=== PATIENT | female | born 2005 | race Caucasian/White ===

== ENCOUNTER 2024-12-02 00:24 | Emergency (ER) | payer OTHER, SELFPAY ==
[2024-12-02 00:34] VITALS: BP 148/83; PULSE 86; RESP 18; TEMP 37.2; O2SAT 99; BMI 39.0
[2024-12-02 00:39] VITALS: BP 148/83; PULSE 86; RESP 18; TEMP 37.2; O2SAT 99
--- NOTE | 2024-12-02 00:56 | W.ED.URI ---
HPI - URI/Sore Throat General: Chief Complaint: Upper Respiratory Infection Stated Complaint: fever, cough Time Seen by Provider: 12/02/24 00:36 History of Present Illness: Patient presents to the ER with sore throat fever cough congestion. Patient's mom had been diagnosed with the flu last night and prescribed Tamiflu. Patient states she is get the flu from her. Related Data Previous Rx's Medication Instructions Recorded albuterol sulfate 90 mcg/actuation 2 puff inhalation Q6H PRN 06/25/22 aerosol inhaler (Ventolin HFA) shortness of breath or wheezing #8.5 grams albuterol sulfate 90 mcg/actuation 2 inh inhalation Q4H PRN shortness 06/04/23 aerosol inhaler of breath or wheezing #6.7 grams oseltamivir 75 mg capsule (Tamiflu) 75 mg PO BID 5 days #10 caps 12/02/24 Allergies Allergy/AdvReac Type Severity Reaction Status Date / Time menthol Allergy ALGY-Rash Verified 12/02/24 00:40 Review of Systems General: Reports: 10 or more systems reviewed and unremarkable except in HPI and below PFSH ED PFSH: Social History Smoking and tobacco/nicotine status: never used tobacco/nicotine Physical Exam Const: COMMON NORMALS: no acute distress, average body habitus, patient oriented x3, no limitations, healthy appearing, alert and well nourished HENMT: COMMON NORMALS: normocephalic, atraumatic, hearing grossly normal bilaterally, external ears normal, Normal external nose present and moist oral mucous membranes HEAD & SCALP: normocephalic and atraumatic NOSE: Normal external nose present EXTERNAL EAR: Yes external ears normal Neck/C-Spine: COMMON NORMALS: no JVD Chest: COMMONS NORMALS: normal inspection of the chest and normal palpation of entire chest wall Resp: COMMON NORMALS: normal respiratory effort, No retractions, No use of accessory muscles and clear to auscultation bilaterally AUSCULTATION: clear to auscultation bilaterally Cardio: COMMON NORMALS: no JVD, regular rate, regular rhythm, S1 normal heart sound present, S2 normal heart sound present, No gallops present (Cardio), No clicks present (Cardio), No murmurs present (Cardio) and No rub (Cardio) RATE: regular rate RHYTHM: regular rhythm HEART SOUNDS: S1 normal heart sound present and S2 normal heart sound present GI: COMMON NORMALS: Normal to inspection, nondistended, normoactive bowel sounds present, Soft to palpation, non-tender, No hepatosplenomegaly present and no masses PALPATION: Yes Soft to palpation and Yes No hepatosplenomegaly present Neuro: COMMON NORMALS: patient oriented x3 SENSORIUM/ORIENTATION: Yes alert Course Vital Signs: Vital signs: Vital Signs Temperature 98.9 F 12/02/24 00:39 Pulse Rate 86 12/02/24 00:39 Respiratory Rate 18 12/02/24 00:39 Blood Pressure 148/83 12/02/24 00:39 Pulse Oximetry 99 12/02/24 00:39 Oxygen Delivery Me thod Room Air 12/02/24 00:34 MDM - URI/Sore Throat Medical Decision Making Coronavirus negative, influenza B negative, RSV negative, influenza A positive, patient be discharged on Tamiflu. Medical Records I reviewed the patient's medical records. Lab Data I reviewed the patient's lab results. Laboratory Results Coronavirus (PCR) Negative (Negative) 12/02/24 00:45 Influenza A (PCR) Positive (Negative) 12/02/24 00:45 Influenza Type B (PCR) Negative (Negative) 12/02/24 00:45 RSV (PCR) Negative (Negative) 12/02/24 00:45 No radiology studies performed this visit Discharge Plan Discharge Patient Disposition: Home Clinical Impression: Influenza A Condition: Stable Prescriptions: New oseltamivir [Tamiflu] 75 mg capsule 75 mg PO BID 5 Days Qty: 10 0RF No Action albuterol sulfate [Ventolin HFA] 90 mcg/actuation HFA aerosol inhaler 2 puff inhalation Q6H PRN (Reason: shortness of breath or wheezing) Qty: 8.5 1RF albuterol sulfate 90 mcg/actuation HFA aerosol inhaler 2 inh inhalation Q4H PRN (Reason: shortness of breath or wheezing) Qty: 6.7 0RF Discharge Orders: Discharge ED (Routine); Ordered 12/02/24 Ordered By: Antonio Odom Referrals: Samuel Donovan Jr, MD [Family Provider] - 1 week Patient Instructions: Influenza (DC) Activity Restrictions/Additional Instructions: [facility]. Please realize that you were seen in the emergency department and that we are providing you with an emergency medical screening exam and this may not be a complete and all exclusive of all testing and/or medical workup we may need to determine your element or severity of your illness. It is very important that you follow-up as instructed with your primary care provider or specialist for the additional evaluation and to discuss your medical treatment plan. You may return to the emergency department should you have concerns or if your condition changes or worsens in any way. Coding Level of Care Code ED Dedicated Local Truck Driver for Leslie Rivsa
[2024-12-02] MEDS: oseltamivir phosphate 75 mg Capsule PO (01:06)
[2024-12-02 01:30] LABS: Covid PCR NEGATIVE (Negative); Influenza A POSITIVE (Negative); Influenza B NEGATIVE (Negative); Respiratory Syncytial Virus Ce NEGATIVE (Negative)
[2024-12-02 02:00] VITALS: BP 111/94; PULSE 84; O2SAT 98
== END 2024-12-02 01:45 | disposition home or self-care (01) ==
PROVIDERS: Emergency Provider Emergency Medicine
DX: J10.1 Influenza due to other identified influenza virus with other respiratory manifestations (principal); Z11.52 Encounter for screening for COVID-19
CPT/HCPCS: 87637; 99283

== ENCOUNTER 2024-12-02 18:04 | Emergency (ER) | payer OTHER, SELFPAY ==
[2024-12-02 18:11] VITALS: BP 123/86; PULSE 104; RESP 16; TEMP 38.6; O2SAT 98; BMI 39.0
--- NOTE | 2024-12-02 19:50 | XRR_ITS ---
PROCEDURE INFORMATION: Exam: XR Chest Exam date and time: 12/02/2024 8:31 PM Age: 19 years old Clinical indication: Cough; Additional info: Cough/congestion TECHNIQUE: Imaging protocol: Radiologic exam of the chest. Views: 1 view. COMPARISON: No relevant prior studies available. FINDINGS: Lungs: Unremarkable. No consolidation. Pleural spaces: Unremarkable. No pleural effusion. No pneumothorax. Heart/Mediastinum: Unremarkable. No cardiomegaly. Bones/joints: Unremarkable. XR/XR chest 1V portable [id number] IMPRESSION: No acute findings.
--- NOTE | 2024-12-02 19:51 | ED_ITS ---
HPI - URI/Sore Throat General: Chief Complaint: Upper Respiratory Infection Stated Complaint: n/v fever body aches Time Seen by Provider: 12/02/24 19:41 Source: patient and family Mode of arrival: ambulatory Limitations: no limitations History of Present Illness: Patient is a 19-year-old female presents to ED today with complaints of fevers, chills, body aches, sore throat, headache. She was seen here earlier this morning and diagnosed with flu A. Patient states she feels worse with her body aches. She reportedly tried to take some ibuprofen but threw it up. MD elicited complaint: fever, cough and nasal congestion Onset (ago): day(s) Consistency: constant Severity: moderate Description of mucous: clear Able to tolerate fluids by mouth: Yes Exacerbating factors: nothing Relieving factors: nothing Context: sick contacts (Mother also has fluid) Associated symptoms: Reports chills, fever(s), headache(s), nasal congestion, nausea, sinus pain and vomiting; Deny abdominal pain or chest pain Treatments prior to arrival: ibuprofen and other (tamiflu) Related Data Previous Rx's Medication Instructions Recorded albuterol sulfate 90 mcg/actuation 2 puff inhalation Q6H PRN 06/25/22 aerosol inhaler (Ventolin HFA) shortness of breath or wheezing #8.5 grams albuterol sulfate 90 mcg/actuation 2 inh inhalation Q4H PRN shortness 06/04/23 aerosol inhaler of breath or wheezing #6.7 grams oseltamivir 75 mg capsule (Tamiflu) 75 mg PO BID 5 days #10 caps 12/02/24 Allergies Allergy/AdvReac Type Severity Reaction Status Date / Time menthol Allergy ALGY-Rash Verified 12/02/24 00:40 Review of Systems Const: Reports: fever(s), chills, body aches and fatigue Eyes: Denies: change in vision, blurry vision, photophobia, floaters or seeing flashes ENMT: Reports: throat pain, odynophagia, nasal congestion and sinus pain Card: Denies: chest pain Resp: Reports: non-productive cough and chest congestion; Denies: dyspnea, wheezing or hemoptysis GI: Reports: nausea and vomiting; Denies: abdominal pain : Denies: flank pain, difficulty voiding, dysuria, urinary frequency, urinary urgency or urinary hesitancy Musc: Denies: neck pain, back pain, extremity pain, extremity swelling, joint pain or joint swelling Skin/Breast: Denies: rash Neuro: Reports: headache(s); Denies: numbness in extremities, weakness in extremities or sensory changes PFSH ED PFSH: Social History Smoking and tobacco/nicotine status: never used tobacco/nicotine Physical Exam Const: COMMON NORMALS: patient oriented x3, no limitations, alert and well nourished GENERAL APPEARANCE: cooperative ORIENTATION/CONSCIOUSNESS: Yes awake, Yes oriented to person, Yes oriented to place and Yes oriented to time HENMT: COMMON NORMALS: normocephalic, atraumatic, EAC's normal, TM's normal bilaterally, moist oral mucous membranes and oropharynx normal HEAD & SCALP: normal to inspection, normocephalic and atraumatic FACE & SINUS: normal facial exam EXTERNAL AUDITORY CANAL: EAC's normal TYMPANIC MEMBRANE: TM's normal bilaterally MOUTH: Normal oral and palatal mucosa present and lip normal THROAT: posterior oropharynx normal and tonsils normal Eye: GENERAL EYE: appearance normal, both eyes and all related structures Neck/C-Spine: COMMON NORMALS: no lymphadenopathy GENERAL: Yes normal visual inspection Resp: COMMON NORMALS: normal respiratory effort and clear to auscultation bilaterally AUSCULTATION: clear to auscultation bilaterally Cardio: COMMON NORMALS: regular rhythm RATE: tachycardic RHYTHM: regular rhythm GI: COMMON NORMALS: Normal to inspection, nondistended, normoactive bowel sounds present, Soft to palpation and non-tender PALPATION: Yes Soft to palpation Extremity: GENERAL: Yes normal exam except as noted Neuro: ISAIAS COMA SCALE: document GCS findings [place] coma scale eye opening: Spontaneous [place] coma scale verbal response: Orientated Isaias coma scale motor response: Obey commands Isaias coma scale total score: 15 COMMON NORMALS: patient oriented x3 SENSORIUM/ORIENTATION: Yes alert, Yes oriented to person, Yes oriented to place and Yes oriented to time Skin: COMMON NORMALS: no rashes or lesions noted GENERAL SKIN EXAM: no rashes or lesions noted Course Vital Signs: Vital signs: Vital Signs Temperature 101.4 F H 12/02/24 18:11 Pulse Rate 104 H 12/02/24 18:11 Respiratory Rate 16 12/02/24 18:11 Blood Pressure 123/86 12/02/24 18:11 Pulse Oximetry 98 12/02/24 18:11 Oxygen Delivery Me thod Room Air 12/02/24 18:11 MDM - URI/Sore Throat Medical Decision Making Patient here for signs and symptoms of influenza A which she was diagnosed with earlier today. She has already been prescribed Tamiflu. Discussed conservative therapies. Patient was requesting CXR. This is unremarkable. She held down Tylenol/Ibuprofen here. She will be allowed discharge. Medical Records I reviewed the patient's medical records. XR interpretation done by ED provider, pending radiology final review Discharge Plan Discharge Patient Disposition: Home Clinical Impression: Influenza A Condition: Stable Prescriptions: No Action albuterol sulfate [Ventolin HFA] 90 mcg/actuation HFA aerosol inhaler 2 puff inhalation Q6H PRN (Reason: shortness of breath or wheezing) Qty: 8.5 1RF albuterol sulfate 90 mcg/actuation HFA aerosol inhaler 2 inh inhalation Q4H PRN (Reason: shortness of breath or wheezing) Qty: 6.7 0RF oseltamivir [Tamiflu] 75 mg capsule 75 mg PO BID 5 Days Qty: 10 0RF Discharge Orders: Discharge ED (Routine); Ordered 12/02/24 Ordered By: Kellen Bauer Referrals: Ozzie Reid MD [Primary Care Provider] - Patient Instructions: Influenza (DC) Activity Restrictions/Additional Instructions: Your chest x-ray was unremarkable. Please continue alternating Tylenol and Ibuprofen to help with fevers and body aches. Finish your Tamiflu. Make sure to drink plenty of fluids to avoid dehydration. Lots of rest/sleep. Coding Level of Care Code ED Supply Chain Technician for Leslie Rivas
[2024-12-02] MEDS: ibuprofen 800 mg tablet PO (20:11)
[2024-12-02] MEDS: ondansetron 4 MG Tablet PO (20:11)
[2024-12-02] MEDS: acetaminophen 500 mg Tablet 1000 MG PO (20:11)
== END 2024-12-02 21:01 | disposition home or self-care (01) ==
PROVIDERS: Emergency Provider Physician Assistant; PCP Family Medicine
DX: J10.1 Influenza due to other identified influenza virus with other respiratory manifestations (principal)
CPT/HCPCS: 71045; 99283; Q0162

== ENCOUNTER 2025-03-11 05:44 | Emergency (ER) | payer OTHER, SELFPAY ==
[2025-03-11 05:55] VITALS: BP 129/87; PULSE 71; RESP 20; TEMP 36.8; O2SAT 97; BMI 38.7
[2025-03-11] MEDS: dexamethasone 10 mg/mL INJ IM (06:21)
--- NOTE | 2025-03-11 06:29 | W.ED.HA ---
HPI - Headache General: Chief Complaint: Headache Stated Complaint: Migraine, Nausea Time Seen by Provider: 03/11/25 05:52 History of Present Illness: 20-year-old female who presents to the emergency room with complaint of headache. Headache is behind the right eye she states she had over 2 days. Was initially evaluating the patient she states the worst her headache was was 8/10 yesterday but now it is completely resolved after she took ibuprofen this morning. When reviewing the nurses notes she had told him it was 10 of 10, still 6 of 10 when they were doing in triage I talked to the nurse who did her triage evidently after the IV was placed she reported to them that her headache was resolved. At the time I seen the patient she states her headache is completely resolved. She does report that she has been getting increasing frequency of her headaches and increasing intensity she gets nauseous with some but has not vomited. She reports the headaches are primarily behind the right eye and did not migrate. She had no vision changes no difficulty with speech or swallowing. She is now getting headaches just relates about every other day and this last 1 was more intense than her previous and lasted for 2 days before resolving this morning after arriving here. No recent head trauma. No fever sweats or chills Associated symptoms: Deny chest pain, fever(s) or rash Related Data Previous Rx's ?Medication ?Instructions ?Recorded albuterol sulfate 90 mcg/actuation 2 puff inhalation Q6H PRN 06/25/22 aerosol inhaler (Ventolin HFA) shortness of breath or wheezing #8.5 grams albuterol sulfate 90 mcg/actuation 2 inh inhalation Q4H PRN shortness 06/04/23 aerosol inhaler of breath or wheezing #6.7 grams topiramate 25 mg tablet (Topamax) 25 mg PO DAILY #30 tabs 03/11/25 Allergies Allergy/AdvReac Type Severity Reaction Status Date / Time menthol Allergy ALGY-Rash Verified 12/02/24 00:40 Review of Systems Const: Denies: fever(s) or chills Card: Denies: chest pain Resp: Denies: dyspnea GI: Denies: abdominal pain : Denies: dysuria, urinary frequency or urinary urgency Musc: Denies: neck pain or back pain Skin/Breast: Denies: rash Neuro: Reports: headache(s) PFSH ED PFSH: Social History Smoking and tobacco/nicotine status: never used tobacco/nicotine Physical Exam Const: GENERAL APPEARANCE: cooperative ORIENTATION/CONSCIOUSNESS: Yes awake, Yes oriented to person, Yes oriented to place and Yes oriented to time HENMT: COMMON NORMALS: normocephalic, atraumatic and hearing grossly normal bilaterally HEAD & SCALP: normocephalic and atraumatic OTHER: Pupils equal react light extract movements intact no nystagmus Resp: COMMON NORMALS: normal respiratory effort, No retractions, No use of accessory muscles and clear to auscultation bilaterally AUSCULTATION: clear to auscultation bilaterally Cardio: COMMON NORMALS: regular rate, regular rhythm and No murmurs present (Cardio) RATE: regular rate RHYTHM: regular rhythm Extremity: COMMON NORMALS: normal to inspection, capillary refill normal, no clubbing, cyanosis or edema, no calf tenderness and no pedal edema Neuro: SENSORIUM/ORIENTATION: Yes oriented to person, Yes oriented to place and Yes oriented to time Skin: COMMON NORMALS: no rashes or lesions noted GENERAL SKIN EXAM: no rashes or lesions noted Course Vital Signs: Vital signs: Vital Signs Temperature 98.2 F 03/11/25 05:55 Pulse Rate 71 03/11/25 05:55 Respiratory Rate 20 H 03/11/25 05:55 Blood Pressure 129/87 03/11/25 05:55 Pulse Oximetry 97 03/11/25 05:55 MDM - Headache Medical Decision Making Initially had ordered some medications for the patient's headache based on the nurses report but when I seen the patient we canceled the since she is not reporting that her headache is completely resolved. She has no focal neurologic deficits. Will discharge patient home on Topamax 25 nightly and recommend that she follow-up with her doctor in 10 to 14 days. Continue to use Tylenol ibuprofen or [id number] diphenhydramine if she has recurrent headaches. Results controlled she could return. Discussed with the patient that we typically do not do imaging in cases such as this. All radiology interpretation(s) finalized by discharge Discharge Plan Discharge Patient Disposition: Home Clinical Impression: Migraine Condition: Stable Prescriptions: New topiramate [Topamax] 25 mg tablet 25 mg PO DAILY Qty: 30 0RF No Action albuterol sulfate [Ventolin HFA] 90 mcg/actuation HFA aerosol inhaler 2 puff inhalation Q6H PRN (Reason: shortness of breath or wheezing) Qty: 8.5 1RF albuterol sulfate 90 mcg/actuation HFA aerosol inhaler 2 inh inhalation Q4H PRN (Reason: shortness of breath or wheezing) Qty: 6.7 0RF Discharge Orders: Discharge ED (Routine); Ordered 03/11/25 Ordered By: Marty Castillo Referrals: Ozzie Reid MD [Primary Care Provider] - Discharge Diet: Usual diet Discharge Activity: Increase activity as tolerated Patient Instructions: Migraine Headache (ED), Opioid Safety, Pain Management Activity Restrictions/Additional Instructions: Thank you for choosing [facility] for your healthcare needs today. It is very important that you follow up as instructed or that you return to the Emergency Department should you have concerns or if your condition changes or worsens in any way. You are seen in the emergency room with complaint of a headache. The time you are seen here reported the headache had stopped after you have taken ibuprofen this morning. Recommend starting on Topamax 25 mg at bedtime. Follow-up with your primary care doctor in the next 10 to 14 days to reevaluate its effectiveness. If you have recurrent headaches you can use Tylenol ibuprofen or [id number] diphenhydramine to help relieve them. Print Language: Hong Konger Coding Level of Care Code ED Real Estate Investment Analyst for Leslie Rivas
[2025-03-11 06:46] VITALS: BP 113/76; PULSE 71; O2SAT 99
== END 2025-03-11 06:47 | disposition home or self-care (01) ==
PROVIDERS: Emergency Provider Family Medicine; PCP Family Medicine
DX: G43.909 Migraine, unspecified, not intractable, without status migrainosus (principal)
CPT/HCPCS: 36415; 96372; 99284; J1100

== ENCOUNTER 2025-09-14 18:26 | Emergency (ER) | payer OTHER, SELFPAY ==
[2025-09-14 18:30] VITALS: BP 121/80; PULSE 97; RESP 18; TEMP 36.7; O2SAT 99
--- OUTSIDE RECORDS SUMMARY | 2025-09-14 18:33 | XMS_ITS | Data Portability ---
Author Organization [facility] Conrad Aguilera [facility] Address [address] [facility] [address] [address] Care Team Providers Care Chief Meteorologist Name Role Phone JENA REID Primary Care Provider Assessment No assessment recorded. Plan of Treatment Reminders Order Date Submit Date Provider Last Modified By Organization Details Last Modified Time Details Appointments None recorded. Lab None recorded. Referral None recorded. Procedures None recorded. Surgeries None recorded. Imaging None recorded. Medication Orders sertraline 50 mg tablet 2024 025 [facility], [address], [place], [address], 5 16:18:46 methylpheni date ER 36 mg tablet,exte nded release 24 hr [address] [facility], [address], [place], [address], 5 16:18:47 sertraline 50 mg tablet [address] [facility], [address], [place], [place], [id number], 5 16:18:37 methylpheni date ER 36 mg tablet,exte nded release 24 hr [address] [facility]53281, [address], [place], [place], [id number], 5 16:18:47 Wellbutrin XL 150 mg 24 hr tablet, extended release 2023 025 [facility] #94660, [address], [place], [place], [id number], 5 12:38:51 hydroxyzine HCl 50 mg tablet 2023 025 [facility] #92841, [address], [place], [place], [id number], 5 16:18:09 Symbicort 160 mcg-4.5 mcg/actuati on HFA aerosol inhaler 2022 023 [facility] #13945, [address], [place], [place], [id number], 4 10:25:14 cetirizine 10 mg tablet 2022 023 [facility] #50551, [address], [place], [place], [id number], 4 10:25:07 Ventolin HFA 90 mcg/actuati on aerosol inhaler 2022 023 [facility] #77219, [address], [place], [place], [id number], 3 17:39:30 Patient TargetsNo targets recorded. Patient InstructionsNo instructions recorded. Reason for Referral None Reported. Problems Name Problem SNOMED Code Status Onset Date Resolution Date Notes Provider Name and Address Organization Details Recorded Time Moderate persistent asthma 178606441 Active 2022 Jena Reid MD [address] [place] [address], [phone] , [facility] 3 17:38:02 Severe recurrent major depression without psychotic features 56743215 Active 2023 Jena Reid MD [address] [place] [address], [phone] 5, [facility] 4 10:42:40 Anxiety 05224863 Active 2023 Jena Reid MD [address] [place] [address], [phone] 5, [facility] 4 10:42:46 Attention deficit hyperactivity disorder 294095471 Active 2023 Jena Reid MD [address] [place] [address], [phone] 5, [facility] 4 10:44:57 Influenza 4462922 Active 2024 Jena Reid MD [address] [place] [address], [phone] 5, [facility] 5 12:43:18 Gender incongruence in adulthood Active 2024 Jena Reid MD [address] [place] [address], [phone] 5, [facility] 5 16:27:57 Problem Notes None recorded. Medical Equipment None Reported. Allergies Allergen ID Allergen Name Allergen Category Reaction Reaction Severity Criticality Documentation Date Start Date Code Code System Note Provider Name and Address Organization Details Recorded Time 30287 menthol medicatio n Not available Not available Not available 09/23/2023 6750 [facility] 3 17:21:47 Medications Name Sig Start Date Stop Date Status Note LastModified by Organization Details LastModified Time cetirizine 10 mg tablet TAKE 1 TABLET BY MOUTH EVERY DAY 09/27 completed Not Available Not Available Not Available sertraline 100 mg tablet TAKE 1 TABLET BY MOUTH ONCE DAILY active Not Available Not Available No t Available topiramate 25 mg tablet TAKE 1 TABLET BY MOUTH ONCE DAILY 06/08 completed Not Available Not Available Not Available hydroxyzine HCl 50 mg tablet TAKE 1 TABLET BY MOUTH EVERY DAY AT BEDTIME 06/08 completed Not Available Not Available Not Available Tamiflu 75 mg capsule Take 1 capsule twice a day by oral route for 5 days. 06/08 completed Not Available Not Available Not Available albuterol sulfate HFA 90 mcg/actuati on aerosol inhaler INHALE 2 PUFFS BY MOUTH EVERY 4 HOURS active Not Available Not Available No t Available propranolol 20 mg tablet TAKE ONE TABLET TWICE A DAY NEEDED FOR ANXIETY/P ANIC active Not Available Not Available No t Available sertraline 50 mg tablet TAKE 1 TABLET BY MOUTH ONCE DAILY 06/08 completed Not Available Not Available Not Available methylpheni date ER 36 mg tablet,exte nded release 24 hr Take 1 tablet every day by oral route. 06/08 completed Not Available Not Available Not Available bupropion HCl XL 150 mg 24 hr tablet, extended release TAKE 1 TABLET BY MOUTH EVERY DAY 12/03 completed Not Available Not Available Not Available Symbicort 160 mcg-4.5 mcg/actuati on HFA aerosol inhaler Inhale 2 puffs twice a day by inhalatio n route. 09/27 completed Not Available Not Available Not Available Vitals Date Recorded Body height Body mass index (BMI) Body weight Body temperature Heart rate Respiratory rate Oxygen saturation Oxygen saturation in Arterial blood by Pulse oximetry Systolic And Diastolic Provider Name and Address Organization Details Last Updated DateTime 5 167.64 cm 38 kg/m2 289358. 93 g 96.9 [degF] 97 /min 16 /min 97 % 97 % 108/80 mm[Hg] Libra Lee [facility] 5 12:37:44 Date Recorded Body height Body mass index (BMI) Body weight Oxygen saturation Oxygen saturation in Arterial blood by Pulse oximetry Heart rate Systolic And Diastolic Provider Name and Address Organization Details Last Updated DateTime 5 167.64 cm 39.1 kg/m2 492069. 35 g 98 % 98 % 75 /min 132/70 mm[Hg] Sonia Velazquez [facility] 5 16:17:13 Date Recorded Body weight Body mass index (BMI) [Percentile] Per age and sex Body mass index (BMI) Body height Body temperature Oxygen saturation Oxygen saturation in Arterial blood by Pulse oximetry Heart rate Systolic And Diastolic Provider Name and Address Organization Details Last Updated DateTime 3 513578. 38 g 98 % 38.7 kg/m2 167.64 cm 97.5 [degF] 98 % 98 % 101 /min 128/82 mm[Hg] KAMERON MCCRACKEN [facility] 3 17:21:36 Date Recorded Body weight Body mass index (BMI) Body height Body temperature Oxygen saturation Oxygen saturation in Arterial blood by Pulse oximetry Heart rate Systolic And Diastolic Provider Name and Address Organization Details Last Updated DateTime 4 342136. 78 g 38.5 kg/m2 167.64 cm 97.7 [degF] 98 % 98 % 70 /min 130/82 mm[Hg] [facility] 4 10:28:03 Date Recorded Body height Body mass index (BMI) Body weight Body temperature Oxygen saturation Oxygen saturation in Arterial blood by Pulse oximetry Heart rate Systolic And Diastolic Provider Name and Address Organization Details Last Updated DateTime 4 167.64 cm 39.6 kg/m2 145408. 83 g 97.4 [degF] 98 % 98 % 78 /min 130/80 mm[Hg] [facility] CAB[facility] 4 12:51:15 Social History Question Answer Notes LastModified by Organizat ion Details LastModified Time Tobacco Smoking Status Never Smoker KAMERON MCCRACKEN [facility] 09/23/2023 17:22:59 Are You Blind Or Do You Have Difficulty Seeing? No Information not available 09/23/2023 What Is Your Level Of Caffeine Consumption? Heavy Information not available 09/23/2023 Are You Deaf Or Do You Have Serious Difficulty Hearing? No Information not available 09/23/2023 What Type Of Diet Are You Following? REGULAR Information not available 09/23/2023 Which Illicit Or Recreational Drugs Have You Used? Scott Information not available 06/08/2025 What Is The Highest Grade Or Level Of School You Have Completed Or The Highest Degree You Have Received? [id number] Information not available 09/23/2023 Which Of Your Hands Is Dominant? Right Information not available 09/23/2023 What Was The Date Of Your Most Recent Tobacco Screening? 06/08/2025 Information not available 06/08/2025 Do You Use Your Seat Belt Or Car Seat Routinely? Yes Information not available 09/23/2023 Do You Participate In Social Media? Yes Information not available 09/23/2023 Have You Recently Traveled Abroad? No Information not available 09/23/2023 Do You Have Difficulty Walking Or Climbing Stairs? No Information not available 09/23/2023 Are You Currently In School? Yes Information not available 09/23/2023 Do You Have Any Dietary Restrictions? No Information not available 09/23/2023 Sex: Unknown Functional Status Question Answer Note LastModified by [employer] Details LastModified Time How many times per week do you consume alcohol? Less than 1 time per week Information not available 06/08/2025 Do you use any illicit or recreational drugs? Yes Information not available 06/08/2025 What is your level of alcohol consumption? Occasional Information not available 09/23/2023 Are you currently employed? Yes works at [employer] Information not available 09/23/2023 Do you have transportation difficulties? No Information not available 09/23/2023 Are you able to walk independently without assistance or assistive devices? YESWOREST Information not available 09/23/2023 Do you have difficulty doing errands alone? No Information not available 09/23/2023 Are you able to care for yourself independently? Yes Information not available 09/23/2023 Do you have difficulty dressing, bathing, grooming, or toileting? No Information not available 09/23/2023 Mental Status Question Answer Note LastModified by Organizat ion Details LastModified Time Do you feel stressed (tense, restless, nervous, or anxious, or unable to sleep at night)? [id number] Information not available 09/23/2023 Do you have difficulty concentrating, remembering or making decisions? No Information no t available 09/23/2023 Family History Nothing Reported Notes:diabetes HTN Medical History No medical history recorded. Gynecological HistoryNo gynecological history recorded. Obstetrics History GPAL:G 0 P 0 0 0 0 Immunizations Vaccine Type Date Status Note Provider Nam e and Address Organization Details Recorded Time Hep B, adolescent or pediatric 3 completed Not Available [facility] 06/08/2025 16:11:24 DTaP-Hep B-IPV 3 completed Not Available [facility] 06/08/2025 16:11:24 Hib (PRP-T) 3 completed Not Available [facility] 06/08/2025 16:11:24 pneumococcal conjugate PCV 7 3 completed Not Available [facility] 06/08/2025 16:11:24 DTaP-Hep B-IPV 3 completed Not Available [facility] 06/08/2025 16:11:24 Hib (PRP-T) 3 completed Not Available [facility] 06/08/2025 16:11:24 pneumococcal conjugate PCV 7 3 completed Not Available [facility] 06/08/2025 16:11:24 DTaP-Hep B-IPV 3 completed Not Available [facility] 06/08/2025 16:11:24 Hib (PRP-T) 3 completed Not Available [facility] 06/08/2025 16:11:24 pneumococcal conjugate PCV 7 3 completed Not Available [facility] 06/08/2025 16:11:24 DTaP 4 completed Not Available [facility] 06/08/2025 16:11:24 Hib (PRP-T) 4 completed Not Available [facility] 06/08/2025 16:11:24 MMR 4 completed Not Available [facility] 06/08/2025 16:11:24 varicella 4 completed Not Available [facility] 06/08/2025 16:11:24 pneumococcal, unspecified formulation 4 completed Not Available [facility] 06/08/2025 16:11:24 DTaP 7 completed Not Available [facility] 06/08/2025 16:11:24 IPV 7 completed Not Available [facility] 06/08/2025 16:11:24 MMRV 7 completed Not Available [facility] 06/08/2025 16:11:24 Tdap 6 completed Not Available [facility] 06/08/2025 16:11:24 Hep A, ped/adol, 2 dose 6 completed Not Available [facility] 06/08/2025 16:11:24 meningococcal MCV4P 6 completed Not Available [facility] 06/08/2025 16:11:24 HPV9 6 completed Not Available [facility] 06/08/2025 16:11:24 HPV9 6 completed Not Available [facility] 06/08/2025 16:11:24 meningococcal MCV4P 0 completed Not Available [facility] 06/08/2025 16:11:24 Past Encounters Encounter ID Performer Location Encounter Start Date Encounter Closed Date Diagnosis/Indication Diagnosis SNOMED-CT Code Diagnosis ICD10 Code Diagnosis IMO Codes Diagnosis Note [id number] Jena Reid MD [facility] [address] [place] [phone] 09/23/2023 17:09:41 09/23/2023 17:57:01 Moderate persistent asthma 507219801 J45.40 Likely has fairly persistent asthma given her albuterol use. Discussed asthma triggers including allergens. Recommend starting cetirizine and a controller medication . Discussed Symbicort and the patient was agreeable. Provided refill for her rescue inhaler. Recommend following up 3 months or sooner if issues arise. [id number] Jena Reid MD [facility] ([facility]) [address] [place] [phone] 09/27/2024 10:17:20 09/27/2024 11:16:37 Severe recurrent major depression without psychotic features 15399118 F33.2 PHQ 9 of 22 is consistent with severe major depression . Patient also has significan t anxiety and likely has ADHD based on reported symptoms and lifelong struggles. Commend starting with Wellbutrin as it can help with depression , anxiety, and is current line treatment for ADHD. See significan t improvemen t with the single medicine alone. Recommend following up in 1 month and making potential med adjustment s at that point if needed. Anxiety 02348425 F41.9 Attention deficit hyperactivity disorder 103145506 F90.9 [id number] Jena Reid MD [facility] ([facility]) [address] [place] [phone] 11/01/2024 12:42:05 11/01/2024 13:55:08 Attention deficit hyperactivity disorder 527323869 F90.9 The patient is still struggling significan tly with her ADHD symptoms. Will start methylphen idate and see how she does with this medication . Follow-up in 1 month. Severe rec urrent major depression without psychotic features 48259904 F33.2 Transition to sertraline to help with her depression symptoms. [id number] Jena Reid MD [facility] ([facility]) [address] [place] [phone] 5 12/03/2024 12:22:15 12/03/2024 13:03:53 Severe recurrent major depression without psychotic features 92911842 F33.2 Continue sertraline Attention deficit hyperactivity disorder 091918104 F90.9 Continue current medication s with no changes. Follow-up in 3 months. Influenza 6370961 J11.1 Continue Tamiflu. [id number] Jena Reid MD [facility] ([facility]) [address] [place] [phone] 06/08/2025 16:07:29 06/08/2025 17:09:32 Gender incongruence in adulthood 9216279496 F64.0 3280610805 Patient would like to start hormonal therapy with testostero ne. Patient was informed that I have not had training in gender affirming care and she would benefit from somebody who is had appropriat e education. Guidance provided and the patient will [facility] as they have experience with this type of care. Health Concerns Section Related Observation LastModified by Organization Detai ls LastModified Time None Recorded Concern Status LastModified by Organization Details LastModified Time None Recorded Advance Directives Directive None Recorded Payers Insurance Date Sequence Insurance Name Policy Number Policy Blair Covered Member ID Blair Member ID Guarantor Name 12/07/2024 2 [employer] [id number] Kristel Snyder [id number] Kristel Snyder 12/07/2024 1 [employer] [id number] Kristel Snyder [id number] Kristel Snyder 12/07/2024 2 [employer] [place] [id number] [employer] FUND (POS) Kristel Snyder [id number] Kristel Snyder 12/07/2024 2 [facility] Kristel Snyder [id number] Kristelzoran Snyder 12/07/2024 2 BENEFIT MANAGEMENT [facility] Kristel Snyder [id number] Kristelzoran Snyder 09/23/2023 2 *SELF PAY* Ju suziehany Boo Snyder 12/07/2024 2 [employer] Kristel Snyder [id number] Kristel Snyder 12/07/2024 2 [employer] Kristelzoarn Snyder [id number] Kristel Snyder 12/07/2024 1 [employer] [place] [address] [employer] WELFARE FUND (POS) [id number] Kristel Snyder [id number] Kristel Snyder 12/07/2024 2 [employer] [id number] Kristel Levystrom [id number] Kristel Snyder Notes Date Note Type Note Provider Name and Address Organization Details Recorded Time 09/23/2023 text/html This is a 18-year-old that comes in today to establish care. The patient states that she has a history of asthma. Patient has found recently that she has needed to use her inhaler multiple times daily. She has found that allergens and possibly her cat are triggers for her asthma. Patient has always used rescue inhalers and never been on any other inhalers for asthma. Patient denies any other medical issues. Denies any other concerns today. Jena Reid MD [address] [place] [address], [phone], [facility] 09/23/2023 17:47:09 09/27/2024 text/html Generalized Anxi ety DisorderReported by PatientHPIFor associated symptoms, patient reportsdifficulty concentrating,difficul ty controlling worry,nausea,high irritability,headaches , andsleep disturbancesbut reportsno dizzinessandno muscle aches.ROS as noted in the HPI This is a 19-year-old female that comes in today to discuss ADHD symptoms. Patient also reports anxiety. Patient states that she is struggled with ADHD throughout school but no has never officially diagnosed. The patient states that she acted out a lot in grade school and then struggled in many of her classes throughout high school. Patient scored a 22 on her PHQ-9 and a 15 on her LISA 7. The patient also had significant symptoms consistent with adult ADHD. Jena Reid MD [address] [place] [address], [phone], [facility] 09/27/2024 17:02:38 11/01/2024 text/html ADHDReported by PatientHPIFor hyperactivity, patient reportshyperactive: at home (and at work)andfidgets/squirm s.ROS as noted in the HPI 19-year-old female that comes in today to discuss treatment of her depression and ADHD. Patient has not had any significant improvement with bupropion. The patient wanted to discuss other medications. Jena Reid MD [address] [place] [address], [phone], [facility] 11/02/2024 16:15:30 12/03/2024 text/html This is a 19-year-old female who comes in today for 1 month follow-up. The patient feels that her new medications are working well for her. Patient denies any significant side effects. Patient is currently on Tamiflu due to recent flu diagnosis. Jena Reid MD [address] [place] [address], [phone], [facility] 12/05/2024 12:44:07 06/08/2025 text/html ROS as noted in the HPI This is a 20-year-old female that comes in today to discuss options to start hormone therapy for gender affirming care. No other concerns today. Jena Reid MD [address] [place] [address], [phone], [facility], [place] 06/19/2025 22:03:48 OBGyn Episode No OBEpisode recorded.
--- NOTE | 2025-09-14 18:54 | CTR_ITS ---
PROCEDURE INFORMATION: Exam: CT Abdomen And Pelvis With Contrast Exam date and time: 09/14/2025 8:17 PM Age: 20 years old Clinical indication: Abdominal pain; Additional info: Rlq pain TECHNIQUE: Imaging protocol: Computed tomography of the abdomen and pelvis with contrast. Radiation optimization: All CT scans at this facility use at least one of these dose optimization techniques: automated exposure control; mA and/or kV adjustment per patient size (includes targeted exams where dose is matched to clinical indication); or iterative reconstruction. Contrast material: OMNI 350; Contrast volume: 100 ml; Contrast route: INTRAVENOUS (IV); COMPARISON: CR XR chest 1V portable [id number] 12/02/2024 8:31 PM RADIATION DOSE METRICS: Total DLP (mGy-cm): 1081.57 FINDINGS: Liver: Normal. No mass. Gallbladder and biliary ducts: Normal. No calcified stones. No ductal dilation. Pancreas: Normal. No ductal dilation. Spleen: Normal. No splenomegaly. Adrenal glands: Normal. No mass. Kidneys and ureters: Normal. No hydronephrosis. Stomach and bowel: Fluid attenuation luminal material within Multiple loops of small bowel, may be related to ingested material although can not exclude mild enteritis or diarrhea related process. No appendicitis. Appendix: No evidence of appendicitis. Intraperitoneal space: Trace pelvic free fluid, possibly physiologic. Vasculature: Unremarkable. No abdominal aortic aneurysm. Lymph nodes: Unremarkable. No enlarged lymph nodes. Urinary bladder: Unremarkable as visualized. Reproductive: Unremarkable as visualized. Bones/joints: Unremarkable. No acute fracture. Soft tissues: Unremarkable. CT/CT abdomen pelvis w con* [id number] IMPRESSION: Fluid attenuation luminal material within Multiple loops of small bowel, may be related to ingested material although can not exclude mild enteritis or diarrhea related process. No appendicitis.
--- NOTE | 2025-09-14 18:57 | W.ED.NAVMDI ---
HPI - Nausea/Vomiting/Diarrhea General: Chief complaint: Nausea/Vomiting/Diarrhea Stated complaint: Diarrhea,NV,Stomach pain Time Seen by Provider: 09/14/25 18:40 History of Present Illness: Patient is a 20-year-old female presents to the emergency room due to nausea, vomiting, diarrhea, umbilical and right lower quadrant pain. This started early this a.m. She states that when she walks her umbilicus hurts severely. Unable to consume any food. She is passing gas. Multiple stools. No recent antibiotics. Associated nausea: Yes Associated symtoms: Reports nausea; Denies chest pain, headache(s) or palpitations Related Data Previous Rx's ?Medication ?Instructions ?Recorded albuterol sulfate 90 mcg/actuation 2 puff inhalation Q6H PRN 06/25/22 aerosol inhaler (Ventolin HFA) shortness of breath or wheezing #8.5 grams albuterol sulfate 90 mcg/actuation 2 inh inhalation Q4H PRN shortness 06/04/23 aerosol inhaler of breath or wheezing #6.7 grams propranolol 20 mg tablet 20 mg PO BID PRN anxiety/panic #60 05/23/25 tabs sertraline 100 mg tablet (Zoloft) 100 mg PO DAILY #30 tabs 05/23/25 omeprazole 20 mg capsule,delayed 20 mg PO DAILY #30 caps 08/23/25 release ondansetron 4 mg disintegrating 4 mg PO Q8H PRN nausea and 09/14/25 tablet vomiting 4 days #14 tabs Allergies Allergy/AdvReac Type Severity Reaction Status Date / Time menthol Allergy ALGY-Rash Verified 08/23/25 15:17 Review of Systems Const: Denies: fever(s) or chills Eyes: Denies: eye discharge ENMT: Denies: throat pain Card: Denies: chest pain or palpitations Resp: Denies: dyspnea GI: Reports: abdominal pain, nausea, vomiting, heartburn and diarrhea : Denies: oliguria Skin/Breast: Denies: rash Neuro: Denies: headache(s) or numbness in extremities PFS ED PFSH: Medical History (Updated 09/14/25 @ 20:56 by THANH Wallis) Psychiatric care Social History Smoking and tobacco/nicotine status: never used tobacco/nicotine Physical Exam Const: COMMON NORMALS: no acute distress, patient oriented x3 and alert GENERAL APPEARANCE: cooperative HENMT: COMMON NORMALS: normocephalic, TM's normal bilaterally and Normal external nose present HEAD & SCALP: normocephalic NOSE: Normal external nose present TYMPANIC MEMBRANE: TM's normal bilaterally THROAT: posterior oropharynx normal Eye: GENERAL EYE: appearance normal, both eyes and all related structures Neck/C-Spine: COMMON NORMALS: full ROM Resp: COMMON NORMALS: normal respiratory effort and clear to auscultation bilaterally EFFORT & INSPECTION: Yes able to speak in complete sentences AUSCULTATION: clear to auscultation bilaterally Cardio: COMMON NORMALS: regular rate and regular rhythm RATE: regular rate RHYTHM: regular rhythm GI: COMMON NORMALS: No hepatosplenomegaly present INSPECTION: Yes normal to inspection AUSCULTATION: Yes normoactive bowel sounds PALPATION: Yes Tenderness to palpation present (GI) Details: RLQ, Yes Guarding due to palpation present (GI) in the RLQ, Yes No hepatosplenomegaly present and Yes Other GI palpation findings present (Positive signs: Rovsing's, McBurney point, psoas) : COMMON NORMALS: Yes no CVA tenderness BLADDER/KIDNEY EXAM: Yes no CVA tenderness Back/Pelvis: COMMON NORMALS: no CVA tenderness Extremity: COMMON NORMALS: full ROM Neuro: COMMON NORMALS: patient oriented x3 SENSORIUM/ORIENTATION: Yes alert SPEECH: speech normal GAIT: Yes Normal gait present Psych: COMMON NORMALS: cooperative ATTITUDE: Yes calm Skin: RASHES: no rashes Course Vital Signs: Vital signs: Vital Signs Temperature 98.1 F 09/14/25 18:30 Pulse Rate 89 09/14/25 19:03 Respiratory Rate 18 09/14/25 18:30 Blood Pressure 129/82 09/14/25 19:03 Pulse Oximetry 99 09/14/25 19:03 Oxygen Delivery Me thod Room Air 09/14/25 19:03 MDM - Nausea/Vomiting/Diarrhea Medical Decision Making Abdominal exam was concerning with her abdominal signs that were positive. CT was ordered, however she does appear to have association to gastroenteritis. Discussed with patient diet, clear liquid diet, Zofran at bedside. Will give 1 L IV fluids, and discharged home. Lab Data I reviewed the patient's lab results. 09/14/25 19:14 09/14/25 19:14 Radiology Impressions Abdomen/Pelvis CT 09/14/25 18:54 IMPRESSION: Fluid attenuation luminal material within Multiple loops of small bowel, may be related to ingested material although can not exclude mild enteritis or diarrhea related process. No appendicitis. Laboratory Results WBC 12.12 10^3/uL (3.29-11.43) H 09/14/25 19:14 RBC 4.94 10^6/uL (3.85-5.65) 09/14/25 19:14 Hgb 14.90 g/dL (11.27-16.99) 09/14/25 19:14 Hct 43.8 % (36-47) 09/14/25 19:14 MCV 88.7 fl (85-98) 09/14/25 19:14 MCH 30.2 pg (27-33) 09/14/25 19:14 MCHC 34.0 g/dL (30-55) 09/14/25 19:14 RDW 12.5 % (12.1-15.1) 09/14/25 19:14 Plt Count 192 10^3/cmm (157-399) 09/14/25 19:14 MPV 11.6 fL (7.4-10.4) H 09/14/25 19:14 Neut % (Auto) 83.0 % 09/14/25 19:14 Lymph % (Auto) 7.6 % 09/14/25 19:14 [place] % (Auto) 7.2 % 09/14/25 19:14 Eos % (Auto) 1.3 % 09/14/25 19:14 Baso % (Auto) 0.7 % 09/14/25 19:14 Neut # (Auto) 10.06 10^3/uL (1.8-7.7) H 09/14/25 19:14 Lymph # (Auto) 0.9 10^3/uL (0.8-4.8) 09/14/25 19:14 Barber # (Auto) 0.9 10^3/uL (0.2-0.9) 09/14/25 19:14 Eos # (Auto) 0.2 10^3/uL (0.0-0.8) 09/14/25 19:14 Baso # (Auto) 0.1 10^3/uL (0.0-0.1) 09/14/25 19:14 Nucleated RBC % (auto) 0 % 09/14/25 19:14 Nucleated RBCs # 0.0 /100WBC 09/14/25 19:14 Sodium 134 mmol/L (136-145) L 09/14/25 19:14 Potassium 4.0 mmol/L (3.5-5.1) 09/14/25 19:14 Chloride 104 mmol/L (98-107) 09/14/25 19:14 Carbon Dioxide 18 mmol/L (22-29) L 09/14/25 19:14 Anion Gap 16.0 (5-19) 09/14/25 19:14 BUN 14 mg/dL (6-20) 09/14/25 19:14 Creatinine 0.6 mg/dL (0.5-0.9) 09/14/25 19:14 GFR Calculation 125.0 mL/min (90-130) 09/14/25 19:14 Glucose 99 mg/dL (65-115) 09/14/25 19:14 Calculated Osmolality 279 mOsm/kg (285-295) L 09/14/25 19:14 Calcium 8.8 mg/dL (8.5-10.5) 09/14/25 19:14 Total Bilirubin 0.7 mg/dL (0.15-1.2) 09/14/25 19:14 AST 15 U/L (0-32) 09/14/25 19:14 ALT 15 U/L (0-33) 09/14/25 19:14 Alkaline Phosphatase 70 U/L (35-105) 09/14/25 19:14 C-Reactive Protein 3.2 mg/L (0.0-4.9) 09/14/25 19:14 Total Protein 7.8 g/dL (6.6-8.7) 09/14/25 19:14 Albumin 4.2 g/dL (3.5-5.2) 09/14/25 19:14 Globulin 3.6 g/dL (1.3-4.6) 09/14/25 19:14 Lipase 24 U/L (13-60) 09/14/25 19:14 HCG, Qual Negative (Negative) 09/14/25 19:14 Urine Color Yellow (Yellow) 09/14/25 19:28 Urine Appearance Clear (CLEAR) 09/14/25 19:28 Urine pH 6.0 (5-7) 09/14/25 19:28 Ur Specific [place] 1.029 (1.005-1.030) 09/14/25 19:28 Urine Protein Negative (Negative) 09/14/25 19:28 Urine Glucose (UA) Negative (Normal) 09/14/25 19:28 Urine Ketones Trace (Negative) 09/14/25 19:28 Urine Blood Negative (Negative) 09/14/25 19:28 Urine Nitrate Negative (Negative) 09/14/25 19:28 Urine Bilirubin Negative (Negative) 09/14/25 19:28 Urine Urobilinogen 1.0 mg/dL (Negative) 09/14/25 19:28 Ur Leukocyte Esterase Negative (Negative) 09/14/25 19:28 Urine RBC 0-2 /hpf (0-2) 09/14/25 19:28 Urine WBC 0-5 /hpf (0-5) 09/14/25 19:28 Ur Squamous Epith Cells 0-5 /hpf (0-5) 09/14/25 19:28 Amorphous Sediment Not Reportable 09/14/25 19:28 Urine Bacteria None seen /hpf (NONE) 09/14/25 19:28 Hyaline Casts 0.40 /lpf 09/14/25 19:28 All radiology interpretation(s) finalized by discharge Discharge Plan Discharge Patient Disposition: Home Clinical Impression: Gastroenteritis Condition: Stable Prescriptions: New ondansetron 4 mg tablet,disintegrating 4 mg PO Q8H PRN (Reason: nausea and vomiting) 4 Days Qty: 14 0RF No Action albuterol sulfate [Ventolin HFA] 90 mcg/actuation HFA aerosol inhaler 2 puff inhalation Q6H PRN (Reason: shortness of breath or wheezing) Qty: 8.5 1RF albuterol sulfate 90 mcg/actuation HFA aerosol inhaler 2 inh inhalation Q4H PRN (Reason: shortness of breath or wheezing) Qty: 6.7 0RF propranolol 20 mg tablet 20 mg PO BID PRN (Reason: anxiety/panic) Qty: 60 2RF sertraline [Zoloft] 100 mg tablet 100 mg PO DAILY Qty: 30 2RF omeprazole 20 mg capsule,delayed release(DR/EC) 20 mg PO DAILY Qty: 30 1RF Discharge Orders: Discharge ED (Routine); Ordered 09/14/25 Ordered By: Yessi Cartwright Referrals: Ozzie Reid MD [Primary Care Provider, Family Practice] Discharge Diet: Clear Liquid Discharge Activity: Resume usual activity Patient Instructions: Gastroenteritis (ED), Patient Portal & [facility] Instructions Activity Restrictions/Additional Instructions: - Clear liquid diet only -Zofran will help with both nausea, vomiting, and diarrhea. Use only as directed however. - Liquid Benadryl can be utilized every 4 hours at 25 mg for [id number] atypical nausea symptoms. - Please return to ED if you have worsening symptoms. Thank you for choosing [facility] for your healthcare needs today. You have been screened and evaluated and felt safe for discharge. Health conditions do change or evolve sometimes and as such it is important that you follow up with your Primary Doctor to be re checked, 3-5 days is a general good time frame for follow up. 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
[2025-09-14 19:03] VITALS: BP 129/82; PULSE 89; O2SAT 99
[2025-09-14 19:20] LABS: Hematocrit 43.8 % (36-47); Hemoglobin 14.90 g/dL (11.27-16.99); Mean Corpuscular HGB Conc 34.0 g/dL (30-55); Mean Corpuscular Hemoglobin 30.2 pg (27-33); Mean Corpuscular Volume 88.7 fl (85-98); Nucleated Red Blood Cells % 0 %; Platelet Count 192 10^3/cmm (157-399); Red Blood Count 4.94 10^6/uL (3.85-5.65); White Blood Count 12.12 10^3/uL (3.29-11.43)
[2025-09-14 19:35] LABS: HCG, Serum Qual Negative (Negative)
[2025-09-14 19:42] LABS: Alanine Aminotransferase 15 U/L (0-33); Albumin Level 4.2 g/dL (3.5-5.2); Alkaline Phosphatase 70 U/L (35-105); Anion Gap 16.0 (5-19); Aspartate Amino Transferase 15 U/L (0-32); Blood Urea Nitrogen 14 mg/dL (6-20); Calcium 8.8 mg/dL (8.5-10.5); Carbon Dioxide 18 mmol/L (22-29); Chloride 104 mmol/L (98-107); Creatinine Clr Calc Pharmacy 187.9213; Globulin 3.6 g/dL (1.3-4.6); Glucose 99 mg/dL (65-115); Lipase 24 U/L (13-60); Osmolality Calculated 279 mOsm/kg (285-295); Potassium 4.0 mmol/L (3.5-5.1); Sodium 134 mmol/L (136-145); Total Protein 7.8 g/dL (6.6-8.7)
[2025-09-14 19:45] LABS: Glucose Urine UA Negative (Normal); Nitrate Urine Negative (Negative); Specific Gravity, Urine 1.029 (1.005-1.030)
[2025-09-14 19:48] LABS: Add Urine Microscopic? YES
[2025-09-14] MEDS: iohexol 350 mg/mL 500 mL Btl (per mL) IV (20:22)
[2025-09-14] MEDS: ondansetron hcl ODT 4 mg Tab PO ×3 (20:54→22:12)
[2025-09-14 21:08] VITALS: BP 123/80; PULSE 84; O2SAT 99
== END 2025-09-14 22:13 | disposition home or self-care (01) ==
PROVIDERS: Emergency Provider Physician Assistant; PCP Family Medicine
DX: K52.9 Noninfective gastroenteritis and colitis, unspecified (principal)
CPT/HCPCS: 36415; 74177; 80053; 81001; 83690; 84703; 85025; 86140; 96360; 99285; J7120; Q0162